=== PATIENT | male | born 1945 | race Caucasian/White ===

== ENCOUNTER 2020-06-18 17:03 | Emergency (ER) | payer MEDICARE, SELFPAY ==
--- NOTE | 2020-06-18 17:30 | XR_ITS ---
PROCEDURE: XR CHEST 2V CLINICAL HISTORY: COUGH COMPARISON: No exams were available for comparison FINDINGS: Normal heart size. There is slight increased density in the paratracheal region superiorly possibly due to overlying vasculature. Follow-up may confirm stability. The lungs are clear without infiltrates, suspicious nodules, or pleural effusions. No acute bony abnormalities. IMPRESSION: No acute finding. Increased paratracheal density possibly due to vascular ectasia. Paratracheal mass not excluded especially on the right. Follow-up may confirm stability Dictated b Erick Gerber MD 06/18/2020 18:36 Erick Gerber MD in [place] 06/18/2020 18:36
[2020-06-18 17:41] VITALS: BP 138/86; PULSE 83; RESP 20; TEMP 36.9; O2SAT 98; BMI 28.0
--- NOTE | 2020-06-18 18:15 | HMH.EDUTC ---
[facility] [place] Clinical Impression: Bronchitis Disposition: Home, Self-Care Condition on Discharge: Good Instructions: Acute Bronchitis, DI for Acute Bronchitis Additional Instructions: Drink plenty of fluids. Take tylenol or ibuprofen for pain or fever. Take the medications as directed. Follow up with your regular doctor. GO TO THE ER FOR ANY WORSENING SYMPTOMS Prescriptions: predniSONE [Deltasone 10mg tablet] 10 mg PO BID 4 Days #8 tab Transmission Status: Received by [facility] Benzonatate [Tessalon Perle 100mg Cap] 100 mg PO TIDP PRN #30 cap PRN Reason: Cough Transmission Status: Received by [facility] Azithromycin [Z-Ariel 250mg Tab*] 250 mg PO UD DOSE PK #6 tab Transmission Status: Received by [facility] Referrals: Andrew Martinez [Primary Care Provider] - Time of Disposition: 18:18 Medical Decision Making - Medical Records Medical records reviewed: No: I reviewed the patient's medical records. - Jim Inquiry Pt receiving controlled substance: No Vital Signs: 06/18/20 17:41 06/18/20 18:19 Temperature 98.4 F 98.4 F Temperature Source Oral Pulse Rate 83 Pulse Rate [Right Brachial] 83 Respiratory Rate 20 20 Blood Pressure 138/86 Blood Pressure [Right Arm] 138/86 Blood Pressure Mean [Right Arm] 103 Blood Pressure Source [Right Arm] Automatic Cuff Blood Pressure Position [Right Arm] Sitting 02 Sat by Pulse Oximetry 98 Oxygen Delivery Method Room Air [facility] [place] HPI - General Stated complaint: cough congestion Time Seen by Provider: 06/18/20 17:45 Mode of Arrival: Ambulatory Source of Information: Patient Limitations: No Limitations Description of Symptoms (Recalled from Triage Doc. by RN): PATIENT STATES THAT HE HAS HAD A CHRONIC COUGH X 1 YEAR. DURING THE PAST 2-3 DAYS, COUGH HAS BECOME DEEPER AND PRODUCTIVE WITH GREEN MUCOUS. DOES C/O SORE THROAT. DENIES ANY OTHER SYMPTOMS HEENT Symptoms (Recalled from RN notes): Yes Resp Symptoms (Recalled from RN notes): Yes Skin Symptoms (Recalled from RN notes): No MS Symptoms (Recalled from RN notes): No Functional Status (Recalled from RN notes): WNL - History of Present Illness Provider Complaint: He c/o a worsening productive cough with yellowish sputum. He denies any fever or chills. - Related Data Previous Rx's Medication Instructions Recorded Azithromycin [Z-Ariel 250mg Tab*] 250 mg PO UD DOSE PK #6 tab 06/18/20 Benzonatate [Tessalon Perle 100mg 100 mg PO TIDP PRN #30 cap 06/18/20 Cap] predniSONE [Deltasone 10mg tablet] 10 mg PO BID 4 Days #8 tab 06/18/20 Allergies Allergy/AdvReac Type Severity Reaction Status Date / Time No Known Allergies Allergy Verified 06/18/20 17:45 - Worker's Comp Is this a Worker's Comp case?: No [facility] History - Hepatitis A Screen Drug use history?: No High risk sexual behaviors?: No History of sexually transmitted infection?: No Currently employed?: No Childcare worker?: No Do you have indoor plumbing?: Yes Do you have electricity?: Yes Attestation statement:: This patient has been screened for Hepatitis A risk factors. I have reviewed the patient's past medical history: Yes - Social History Alcohol Intake: never Occupational Status: other ROS Obtained: Yes All systems reviewed & no additional complaints - Constitutional Constitutional: Denies chills, Denies fever(s) - Eyes Eyes: Denies eye discharge - ENT Ears, Nose, Mouth, and Throat: Denies dizziness, Denies otalgia, Reports post nasal drip, Denies sore throat - Cardiovascular Cardiovascular: Denies chest pain - Respiratory Respiratory: Yes chest congestion, Yes cough, No dyspnea, No coughing up blood, No stridor, No wheezing - Gastrointestinal Gastrointestingal: Denies: abdominal pain, diarrhea, nausea, reflux Physical Exam - General General appearance: alert, in no apparent distress - Head Head exam: atraumatic, normocephalic, normal inspection - Ey
[2020-06-18 18:19] VITALS: BP 138/86; PULSE 83; RESP 20; TEMP 36.9; O2SAT 98
== END 2020-06-18 18:22 | disposition home or self-care (01) ==
PROVIDERS: Emergency Provider Nurse Practitioner Family; PCP Family Medicine
DX: J20.9 Acute bronchitis, unspecified (principal)
CPT/HCPCS: 71046; 99201

== ENCOUNTER 2020-11-13 10:41 | Emergency (ER) | payer MEDICARE, SELFPAY ==
[2020-11-13 11:21] VITALS: BP 160/87; PULSE 87; RESP 16; TEMP 36.6; O2SAT 98; BMI 26.6
--- NOTE | 2020-11-13 11:30 | HMH.EDUTC ---
[facility] [place]ression: Toe infection Disposition: Home, Self-Care Condition on Discharge: Good Instructions: Trimethoprim/Sulfamethoxazole (Alternative Therapy), Ingrown Toenail, Cephalexin, Mupirocin Additional Instructions: Make sure to soak foot in warm water and epson salt 3-4 times daily Apply topical medication around the toenail as instructed Take oral medications as prescribe Call and make appointment with Podiatry for further treatment and evaluation Follow up with Family Doctor for further treatment and evaluation and for wound culture results and treatment if no improvement in the next 48-72 hours Straight to ER if any life threatening symptoms Return if needed Prescriptions: Sulfamethoxazole/Trimethoprim [Bactrim DS tablet] 1 each PO BID 10 Days #20 tab Transmission Status: Received by [facility] cephALEXin [Keflex 500mg Cap] 500 mg PO Q6H 7 Days #28 cap Transmission Status: Received by [facility] Mupirocin Calcium [Mupirocin 2% Cream 15gm] 1 applicatio TP TID #1 tube Transmission Status: Received by [facility] Referrals: Andrew Martinez [Primary Care Provider] - As needed Robina Feng APRN [Nurse Practitioner] - Dottie Dawson DPM [Staff Physician] - As needed (Call office on Monday for appointment) Time of Disposition: 11:43 Medical Decision Making - Jim Inquiry Pt receiving controlled substance: No Jim was queried for this patient: No Vital Signs: 11/13/20 11:21 11/13/20 11:42 Temperature 98 F 98 F Temperature Source Oral Oral Pulse Rate 87 Pulse Rate [Right] 87 Respiratory Rate 16 16 Blood Pressure 160/87 H Blood Pressure [Right Arm] 160/87 H Blood Pressure Mean [Right Arm] 111 Blood Pressure Source Automatic Cuff Blood Pressure Source [Right Arm] Automatic Cuff Blood Pressure Position Sitting Blood Pressure Position [Right Arm] Sitting 02 Sat by Pulse Oximetry 98 Oxygen Delivery Method Room Air Medical Decision Narrative: Culture obtained and sent to lab [facility] [place] - General Stated complaint: big toe on right foot pain Time Seen by Provider: 11/13/20 11:31 Mode of Arrival: Ambulatory Source of Information: Patient Limitations: No Limitations Description of Symptoms (Recalled from Triage Doc. by RN): Pt right big toe swollen, red, painful to touch HEENT Symptoms (Recalled from RN notes): No Resp Symptoms (Recalled from RN notes): No Skin Symptoms (Recalled from RN notes): Yes (big toe swollen and john paul) MS Symptoms (Recalled from RN notes): No Functional Status (Recalled from RN notes): na - History of Present Illness Provider Complaint: Patient states that he noticed a couple of days ago that he was having some redness, swelling and big toe on right foot was hurting States that he thought he may have a ingrown toe nail and it has continued to get worse and now the redness is starting to move down his toe and it is red, swollen and some drainage around the nail - Related Data Previous Rx's Medication Instructions Recorded Azithromycin [Z-Ariel 250mg Tab*] 250 mg PO UD DOSE PK #6 tab 06/18/20 Benzonatate [Tessalon Perle 100mg 100 mg PO TIDP PRN #30 cap 06/18/20 Cap] predniSONE [Deltasone 10mg tablet] 10 mg PO BID 4 Days #8 tab 06/18/20 Mupirocin Calcium [Mupirocin 2% 1 applicatio TP TID #1 tube 11/13/20 Cream 15gm] Sulfamethoxazole/Trimethoprim 1 each PO BID 10 Days #20 tab 11/13/20 [Bactrim DS tablet] cephALEXin [Keflex 500mg Cap] 500 mg PO Q6H 7 Days #28 cap 11/13/20 Allergies Allergy/AdvReac Type Severity Reaction Status Date / Time No Known Allergies Allergy Verified 06/18/20 17:45 - Worker's Comp Is this a Worker's Comp case?: No [facility] History - Hepatitis A Screen Drug use history?: No High risk sexual behaviors?: No History of sexually transmitted infection?: No Currently employed?: No Childcare worker?: No Do you have indoor plumbing?: Yes Do you have electricity?: Yes
[2020-11-13 11:42] VITALS: BP 160/87; PULSE 87; RESP 16; TEMP 36.6
== END 2020-11-13 11:43 | disposition home or self-care (01) ==
PROVIDERS: Emergency Provider Nurse Practitioner; PCP Family Medicine
DX: L03.031 Cellulitis of right toe (principal)
CPT/HCPCS: G0463; 87070; 87077; 87186; 87205; 99202

== ENCOUNTER → 2021-03-15 10:12 | Outpatient (CLI) | payer MEDICARE, SELFPAY | DX: R09.89 Other specified symptoms and signs involving the circulatory and respiratory systems (principal); B96.89 Other specified bacterial agents as the cause of diseases classified elsewhere | CPT/HCPCS: 87070; 87077; 87116; 87186; 87205; 87206 ==

== ENCOUNTER 2021-12-27 11:22 | Emergency (ER) | payer MEDICARE, SELFPAY ==
[2021-12-27 12:20] VITALS: BP 138/81; PULSE 73; RESP 18; TEMP 36.7; O2SAT 99; BMI 28.0
--- NOTE | 2021-12-27 13:10 | HMH.EDUTC ---
[facility] [place] Disposition Clinical Impression: Sinusitis Qualifiers: Sinusitis location: unspecified location Chronicity: unspecified Qualified Code(s): J32.9 - Chronic sinusitis, unspecified Disposition: Home, Self-Care Condition on Discharge: Good Instructions: Sinusitis, DI for Sinusitis Additional Instructions: ? Start antibiotic today. Be sure to complete entire prescription even if feeling better ? Monitor temp. Tylenol every 4 hours as needed and / or ibuprofen every 6 hours as needed ( As long as your primary care physician has told you that it ok to take both. For fever/aches/pains ER if no less than 101 despite Tylenol or Motrin ? Humidifier/vaporizer or hot steamy shower may help with sinus congestion and irritation ? Inhaler every 4-6 hours as needed like we discussed. If unsure how to use it, ask pharmacist to demonstrate how. Should help open airways and improve cough, wheezing, and shortness of breath as you was previously prescribed *Tessalon Perles will not cause drowsiness but use at bedtime to help stop cough so that you may get some rest. as you was previously prescribed *Start steroid today. Helps with inflammation therefore, cough and wheezing. Follow directions on the package. Reviewed side effects. Patient reports taking them before. Follow up IMMEDIATELY for new or worsening of symptoms OR no noticeable improvement over the next 48-72 hours. 911 immediately for any life threatening symptoms such as chest pain or difficulty breathing Prescriptions: Amoxicillin/Potassium Clav [Augmentin 875-125 Tablet] 1 tab PO Q12H 7 Days #14 tab Transmission Status: Pending to [facility] predniSONE [Deltasone 10mg tablet] 10 mg PO BID 4 Days #8 tab Transmission Status: Pending to [facility] Referrals: Provider,Referral, [Primary Care Provider] - As needed Time of Disposition: 13:19 Medical Decision Making - Jim Inquiry Pt receiving controlled substance: No Jim was queried for this patient: No Vital Signs: 12/27/21 12:20 12/27/21 13:18 Temperature 98.0 F 98.0 F Temperature Source Oral Pulse Rate 73 Pulse Rate [Left Brachial] 73 Respiratory Rate 18 18 Blood Pressure 138/81 Blood Pressure [Left Arm] 138/81 Blood Pressure Mean [Left Arm] 100 Blood Pressure Source [Left Arm] Automatic Cuff Blood Pressure Position [Left Arm] Sitting 02 Sat by Pulse Oximetry 99 Oxygen Delivery Method Room Air Medical Decision Narrative: Discussed with patient and due to patient being on blood thinners recommended transfer to the ED and patient declined State that he does this with sinus infection and he is not coughing up any blood and he would return or follow up immediately if symptoms worsen or do not improve [facility] [place] HPI - General Stated complaint: coughing up blood Time Seen by Provider: 12/27/21 13:10 Mode of Arrival: Ambulatory Source of Information: Patient Limitations: No Limitations Description of Symptoms (Recalled from Triage Doc. by RN): PATIENT C/O BLOOD-TINGED SINUS DRAINAGE X 2 WEEKS HEENT Symptoms (Recalled from RN notes): Yes Resp Symptoms (Recalled from RN notes): No Skin Symptoms (Recalled from RN notes): No MS Symptoms (Recalled from RN notes): No Functional Status (Recalled from RN notes): WNL - History of Present Illness Provider Complaint: Patient states that he has been having sinus issues for about 2 weeks States at times he feels like it is draining in the back of his throat an will snuff some out States that he noticed it has been having blood streaks in it at times States that his thinks he may have a bad sinus infection so he came in - Related Data Home Medications Medication Instructions Recorded Confirmed celecoxib 200 mg capsule 200 mg PO cap 11/26/20 11/26/20 doxazosin 4 mg tablet 4 mg PO tab 11/26/20 11/26/20 finasteride 5 mg tablet 5 mg PO tab 11/26/20 11/26/20 lisinopril 20 1 tab PO tab 11/26/20 11/26/20 mg-hydrochlorothiazide 12.5 mg
[2021-12-27 13:18] VITALS: BP 138/81; PULSE 73; RESP 18; TEMP 36.7; O2SAT 99
== END 2021-12-27 13:22 | disposition home or self-care (01) ==
PROVIDERS: Emergency Provider Nurse Practitioner
DX: J32.9 Chronic sinusitis, unspecified (principal); K21.9 Gastro-esophageal reflux disease without esophagitis; E78.5 Hyperlipidemia, unspecified
CPT/HCPCS: 99202; G0463

== ENCOUNTER 2022-08-17 11:43 | Emergency (ER) | payer MEDICARE, SELFPAY ==
[2022-08-17 11:52] VITALS: BP 141/84; PULSE 79; RESP 19; TEMP 36.6; O2SAT 98; BMI 27.5
--- NOTE | 2022-08-17 11:58 | EXP.UTC ---
Discharge Plan Disposition Patient Disposition: Home, Self-Care Condition: Good Prescriptions Prescriptions: New amoxicillin-pot clavulanate 875-125 mg Tablet 1 tab PO Q12H Qty: 20 0RF prednisone 10 mg tablet 10 mg PO BID 5 Days Qty: 10 0RF benzonatate 100 mg capsule 100 mg PO TID PRN (Reason: cough) Qty: 15 0RF No Action doxazosin 4 mg tablet 4 mg PO DAILY rabeprazole 20 mg tablet,delayed release (DR/EC) 20 mg PO DAILY Label Comments: TAKE 1 TABLET BY MOUTH ONCE DAILY finasteride 5 mg tablet 5 mg PO DAILY Label Comments: TAKE 1 TABLET BY MOUTH ONCE DAILY zolpidem 12.5 mg tablet,ext release multiphase 12.5 mg PO DAILY Label Comments: TAKE 1 TABLET BY MOUTH AT NIGHT NEEDED FOR SLEEP atorvastatin 20 mg tablet 20 mg PO DAILY Label Comments: TAKE 1 TABLET BY MOUTH ONCE DAILY metoprolol succinate 100 mg tablet extended release 24 hr 100 mg PO DAILY Label Comments: TAKE 1 TABLET BY MOUTH ONCE DAILY Eliquis 5 mg tablet 5 mg PO DAILY Label Comments: TAKE 1 TABLET BY MOUTH TWICE DAILY duloxetine 30 mg capsule,delayed release(DR/EC) 30 mg PO DAILY Referrals Follow up/Referrals: Provider,Referral, MD [Primary Care Provider] - See instructions Activity Restrictions/Add. Instructions Additional Instructions/Restrictions: *Monitor Temp, Over the counter Motrin or Tylenol as directed/as needed Tylenol every 4 hours and Motrin every 6 hours (as long as your family doctor has told you that you can take it) for fever or pain. and straight to ER if unable to lower temp less than 101.0 after medication given *Warm salt water gargles may help to soothe the throat *Throat Lozenges? *Warm fluids like tea with honey may help to soothe the throat? *Sleep elevated *Humidifier/Vaporizer *Flonase 2 sprays in each nostril daily but be aware that it may take 2-3 days before you notice improvement *Bromfed may cause drowsiness. Know how it effects you (your child) before driving, caring for small child, or sending your child to school. Not other antihistamines/allergy medications while taking bromfed Your throat swab was sent for culture. Those results are typically sent to your primary care. Be sure to follow up in 2-3 days with your family doctor/primary care physician if no improvement so they can review those result and treat if necessary. If you don?t have a primary care doctor, I recommend you get one but in the mean time, you will have to return to a walk in clinic Follow up IMMEDIATELY for new or worsening symptoms or no Noticeable improvement over the next 48-72 hours. 911 for difficulty breathing or swallowing Clinical Impressions Clinical Impression: Sinusitis, Bronchitis Instructions Patient Instructions: DI for Sinusitis, Acute Bronchitis Discharge ED Provider: Rafaela Rowell [facility] [place] HPI General Stated complaint: Cough, mucus Mode of Arrival: Family Vehicle Source of Information: Patient Limitations: No Limitations Time Seen by Provider: 08/17/22 11:58 Description of Symptoms (Recalled from Triage Doc. by RN): pt comes in with c/o coughing up mucus for 2 days. HEENT Symptoms (Recalled from RN notes): No Resp Symptoms (Recalled from RN notes): Yes Skin Symptoms (Recalled from RN notes): No MS Symptoms (Recalled from RN notes): No Functional Status (Recalled from RN notes): n/a History of Present Illness Provider Complaint: Patient states that he has been having sinus congestion and pressure along with cough for over a week but for the last couple of days he has been having drainage in the back of his throat and coughing up some mucous at times States that he wanted to come in and get something for it before it got too bad or turned into pneumonia Related Data Home Medications Medication Instructions Recorded Confirmed doxazosin 4 mg tablet 4 mg PO DAILY prostate 11/26/20 08/17/22 mariyaast
[2022-08-17 12:14] VITALS: BP 141/84; PULSE 79; RESP 19; TEMP 36.6
== END 2022-08-17 12:16 | disposition home or self-care (01) ==
PROVIDERS: Emergency Provider Nurse Practitioner
DX: R09.81 Nasal congestion (principal); R05.9 Cough, unspecified; Z79.01 Long term (current) use of anticoagulants; Z79.52 Long term (current) use of systemic steroids; Z79.899 Other long term (current) drug therapy; Z87.891 Personal history of nicotine dependence
CPT/HCPCS: 99213; G0463

== ENCOUNTER 2022-10-09 09:28 | Emergency (ER) | payer MEDICARE, SELFPAY ==
[2022-10-09] VITALS (8 sets, daily range): BP systolic 107–156; BP diastolic 62–99; PULSE 46–76; RESP 18–20; TEMP 36.7–36.9; O2SAT 92–96; BMI 27.9; BMI 27.3
--- NOTE | 2022-10-09 11:24 | XR_ITS ---
PROCEDURE INFORMATION: Exam: XR Chest Exam date and time: 10/09/2022 11:34 AM Age: 77 years old Clinical indication: Cough; Additional info: Chest congestion TECHNIQUE: Imaging protocol: Radiologic exam of the chest. Views: 2 views. COMPARISON: CR XR CHEST 2V 06/18/2020 5:35 PM FINDINGS: Lungs: Question subtle atelectasis within the lingula versus the middle lobe best visualized on the lateral view. Lungs are otherwise well aerated. Pleural spaces: Unremarkable. No pleural effusion. No pneumothorax. Heart/Mediastinum: Unremarkable. No cardiomegaly. Bones/joints: Unremarkable. IMPRESSION: Question subtle atelectasis within the lingula versus the middle lobe best visualized on the lateral view. Lungs are otherwise well aerated.
--- NOTE | 2022-10-09 11:36 | EXP.UTC ---
Discharge Plan Disposition Patient Disposition: Home, Self-Care Condition: Good Prescriptions Prescriptions: New hydrocodone-homatropine [Hycodan (with homatropine)] 5-1.5 mg/5 mL syrup 5 ml PO Q6H PRN (Reason: cough) Qty: 100 0RF No Action doxazosin 4 mg tablet 4 mg PO DAILY rabeprazole 20 mg tablet,delayed release (DR/EC) 20 mg PO DAILY Label Comments: TAKE 1 TABLET BY MOUTH ONCE DAILY finasteride 5 mg tablet 5 mg PO DAILY Label Comments: TAKE 1 TABLET BY MOUTH ONCE DAILY zolpidem 12.5 mg tablet,ext release multiphase 12.5 mg PO DAILY Label Comments: TAKE 1 TABLET BY MOUTH AT NIGHT NEEDED FOR SLEEP atorvastatin 20 mg tablet 20 mg PO DAILY Label Comments: TAKE 1 TABLET BY MOUTH ONCE DAILY metoprolol succinate 100 mg tablet extended release 24 hr 100 mg PO DAILY Label Comments: TAKE 1 TABLET BY MOUTH ONCE DAILY Eliquis 5 mg tablet 5 mg PO DAILY Label Comments: TAKE 1 TABLET BY MOUTH TWICE DAILY duloxetine 30 mg capsule,delayed release(DR/EC) 30 mg PO DAILY Referrals Follow up/Referrals: Andrew Martinez [Primary Care Provider] - See instructions Romario Galindo MD [Staff Physician] - See instructions Activity Restrictions/Add. Instructions Additional Instructions/Restrictions: During the daytime take [id number] Robitussin (dextromethorphan/ guaifenesin) as directed for cough. Follow up tomorrow morning with Dr. Romario Galindo in his office at 9 AM. Avoid exertion Clinical Impressions Clinical Impression: Bronchitis, Post-tussive syncope, Acute pericardial effusion Instructions Patient Instructions: DI for Acute Bronchitis Discharge ED Provider: Roger Rojas [facility] General Chief complaint: Upper Respiratory Infection Stated complaint: SOA, Cough Mode of Arrival: Ambulatory Source of Information: Patient Limitations: No Limitations Time Seen by Provider: 10/09/22 11:36 Description of Symptoms (Recalled from Triage Doc. by RN): PATIENT C/O COUGH AND CONGESTION X 2 WEEKS. PATIENT STATES HE GETS DIZZY WHEN HE COUGHS. DIAGNOSED WITH FLU ON MONDAY HEENT Symptoms (Recalled from RN notes): No Resp Symptoms (Recalled from RN notes): Yes Skin Symptoms (Recalled from RN notes): No MS Symptoms (Recalled from RN notes): No Functional Status (Recalled from RN notes): WNL History of Present Illness Provider Complaint: Patient state that he has not felt well for about 2 weeks State that he has been falling and off balance and blacking out at times when he coughs, States that took him to [facility] and he was dx with flu on Monday States that they did a chest xray and thought he may have a little fluid around his heart States that since then he has got more short of breath and when he coughs he about passes out states that he is not acting like his normal self and very unsteady on his feet and gets winded easily so today she brought him back in Related Data Home Medications Medication Instructions Recorded Confirmed doxazosin 4 mg tablet 4 mg PO DAILY prostate 11/26/20 10/10/22 finasteride 5 mg tablet 5 mg PO DAILY prostate 11/26/20 10/10/22 rabeprazole 20 mg tablet,delayed 20 mg PO DAILY GERD 11/26/20 10/10/22 release zolpidem 12.5 mg tablet,extended 12.5 mg PO DAILY Insomnia 11/26/20 10/10/22 release,multiphase apixaban 5 mg tablet (Eliquis) 5 mg PO DAILY Blood thinner 08/17/22 10/10/22 atorvastatin 20 mg tablet 20 mg PO DAILY Cholesterol 08/17/22 10/10/22 duloxetine 30 mg capsule,delayed 30 mg PO DAILY Anxiety 08/17/22 10/10/22 release metoprolol succinate 100 mg 100 mg PO DAILY High blood pressure 08/17/22 10/10/22 tablet,extended release 24 hr Previous Rx's Medication Instructions Recorded hydrocodone-homatropine 5 mg-1.5 5 ml PO Q6H PRN cough #100 mL 10/09/22 mg/5 mL oral syrup (Hycodan (with homatropine)) Allergies Allergy/AdvReac Type Severity Reaction Status Date / Ti
--- NOTE | 2022-10-09 11:52 | PC.NURSE ---
Pt returned from [facility].
--- NOTE | 2022-10-09 11:52 | PC.NURSE ---
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
--- NOTE | 2022-10-09 12:25 | HMH.EDGENADL ---
Discharge Plan Disposition Patient Disposition: Home, Self-Care Condition: Good Prescriptions Prescriptions: New hydrocodone-homatropine [Hycodan (with homatropine)] 5-1.5 mg/5 mL syrup 5 ml PO Q6H PRN (Reason: cough) Qty: 100 0RF No Action doxazosin 4 mg tablet 4 mg PO DAILY rabeprazole 20 mg tablet,delayed release (DR/EC) 20 mg PO DAILY Label Comments: TAKE 1 TABLET BY MOUTH ONCE DAILY finasteride 5 mg tablet 5 mg PO DAILY Label Comments: TAKE 1 TABLET BY MOUTH ONCE DAILY zolpidem 12.5 mg tablet,ext release multiphase 12.5 mg PO DAILY Label Comments: TAKE 1 TABLET BY MOUTH AT NIGHT NEEDED FOR SLEEP atorvastatin 20 mg tablet 20 mg PO DAILY Label Comments: TAKE 1 TABLET BY MOUTH ONCE DAILY metoprolol succinate 100 mg tablet extended release 24 hr 100 mg PO DAILY Label Comments: TAKE 1 TABLET BY MOUTH ONCE DAILY Eliquis 5 mg tablet 5 mg PO DAILY Label Comments: TAKE 1 TABLET BY MOUTH TWICE DAILY duloxetine 30 mg capsule,delayed release(DR/EC) 30 mg PO DAILY amoxicillin-pot clavulanate 875-125 mg Tablet 1 tab PO Q12H Qty: 20 0RF prednisone 10 mg tablet 10 mg PO BID 5 Days Qty: 10 0RF benzonatate 100 mg capsule 100 mg PO TID PRN (Reason: cough) Qty: 15 0RF Referrals Follow up/Referrals: Andrew Martinez [Primary Care Provider] - See instructions Romario Galindo MD [Staff Physician] - See instructions Activity Restrictions/Add. Instructions Additional Instructions/Restrictions: During the daytime take [id number] Robitussin (dextromethorphan/ guaifenesin) as directed for cough. Follow up tomorrow morning with Dr. Romario Galindo in his office at 9 AM. Avoid exertion Clinical Impressions Clinical Impression: Bronchitis, Post-tussive syncope, Acute pericardial effusion Instructions Patient Instructions: DI for Acute Bronchitis Discharge ED Provider: Roger Rojas General Adult HPI General Chief complaint: Upper Respiratory Infection Stated complaint: SOA, Cough Time Seen by Provider: 10/09/22 11:36 Mode of Arrival: Ambulatory Source of Information: Patient Limitations: No Limitations Description of Symptoms (Recalled from ER Triage Doc. by RN): PATIENT C/O COUGH AND CONGESTION X 2 WEEKS. PATIENT STATES HE GETS DIZZY WHEN HE COUGHS. DIAGNOSED WITH FLU ON MONDAY History of Present Illness HPI narrative: Patient presents with a 2-week history of cough and congestion. He has had to episodes of passing out following prolonged episodes of coughing. He was seen at another facility and prescribed antitussives but the cough persists. He was diagnosed with flu on Monday. He denies chest pain but has had some dyspnea. He is on Eliquis for A. fib. Symptoms are described as moderate to severe and worse with cough Related Data Home Medications Medication Instructions Recorded Confirmed doxazosin 4 mg tablet 4 mg PO DAILY prostate 11/26/20 08/17/22 finasteride 5 mg tablet 5 mg PO DAILY prostate 11/26/20 08/17/22 rabeprazole 20 mg tablet,delayed 20 mg PO DAILY GERD 11/26/20 08/17/22 release zolpidem 12.5 mg tablet,extended 12.5 mg PO DAILY Insomnia 11/26/20 08/17/22 release,multiphase apixaban 5 mg tablet (Eliquis) 5 mg PO DAILY Blood thinner 08/17/22 08/17/22 atorvastatin 20 mg tablet 20 mg PO DAILY Cholesterol 08/17/22 08/17/22 duloxetine 30 mg capsule,delayed 30 mg PO DAILY Anxiety 08/17/22 08/17/22 release metoprolol succinate 100 mg 100 mg PO DAILY High blood pressure 08/17/22 08/17/22 tablet,extended release 24 hr Previous Rx's Medication Instructions Recorded amoxicillin 875 mg-potassium 1 tab PO Q12H #20 tabs 08/17/22 clavulanate 125 mg tablet benzonatate 100 mg capsule 100 mg PO TID PRN cough #15 caps 08/17/22 prednisone 10 mg tablet 10 mg PO BID 5 days #10 tabs 08/17/22 hydrocodone-homatropine 5 mg-1.5 5 ml PO Q6H PRN cough #100 mL 10/09/22 mg/5 mL oral syrup (Hycoda
--- NOTE | 2022-10-09 12:50 | ECG_ITS ---
APPROVED REPORT Exam: Resting ECG HR:70 bpm ECG Measurements Heart Rate 70 AXES QRSd 128 QRS 72 QT 441 T 39 QTc 462 Conclusion ATRIAL FIBRILLATION RIGHT BUNDLE BRANCH BLOCK [120+ ms QRS DURATION, UPRIGHT V1, 40+ ms S IN I/aVL/V4/V5/V6] ABNORMAL ECG UNCONFIRMED REPORT Electronically signed by : Feroz Britton MD 10/10/2022 21:11:54
[2022-10-09 12:52] LABS: Basophils % 0.6 % (0.1-2.0); Eosinophils # 0.1 K/mm3 (0.0-0.4); Eosinophils % 1.1 % (0.1-12.0); Hematocrit 41.9 % (42.0-52.0); Hemoglobin 13.8 g/dL (14.1-18.0); Lymphocytes # 1.6 K/mm3 (0.7-4.5); Lymphocytes % 25.6 % (10-50); Mean Corpuscular HGB Conc 32.9 g/dL (31.8-35.4); Mean Corpuscular Hemoglobin 31.4 pg (27.0-31.2); Mean Corpuscular Volume 95.4 fl (80-94); Mean Platelet Volume 8.1 fl (7.4-10.4); Monocytes # 0.4 K/mm3 (0.1-1.0); Monocytes % 6.7 % (1.7-9.3); Neutrophils # 4.2 K/mm3 (1.8-7.8); Neutrophils % 65.9 % (37.0-80.0); Platelet Count 257 K/mm3 (142-424); Red Blood Count 4.39 M/mm3 (4.60-6.20); Red Cell Distribution Width 12.5 % (11.5-17.5); White Blood Count 6.3 K/mm3 (4.8-10.8)
[2022-10-09 13:13] LABS: Alanine Aminotransferase 26 U/L (12-78); Albumin Level 3.8 g/dl (3.5-5.0); Albumin/Globulin Ratio 1.2 (1.1-1.8); Alkaline Phosphatase 117 U/L (38-126); Anion Gap 16.6 mEq/L (5-15); Aspartate Amino Transferase 51 U/L (17-59); Bilirubin,Total 0.6 mg/dl (0.2-1.3); Blood Urea Nitrogen 15 mg/dl (9-20); Calcium 10.1 mg/dl (8.4-10.2); Carbon Dioxide 30 mmol/L (22.0-30.0); Chloride 93 mmol/L (98-107); Creatinine Clearance Estimated 76 mL/min (50-200); Estimated Glomerular Filt Rate 73 ml/min (>60); GFR (African American) 88 ML/MIN (>60); Globulin 3.3 g/dL (1.3-3.2); Glucose 103 mg/dl (74-100); Potassium 4.6 mmoL/L (3.5-5.1); Sodium 135 mmol/L (136-145); Total Protein,Serum 7.1 g/dl (6.3-8.2)
[2022-10-09 13:18] LABS: D-Dimer 0.83 ug/mL (0.0-0.5)
[2022-10-09 13:32] LABS: Troponin I < 0.01 ng/ml (0.00-0.034)
--- NOTE | 2022-10-09 13:33 | CT_ITS ---
PROCEDURE INFORMATION: Exam: CTA Chest With Contrast Exam date and time: 10/09/2022 1:47 PM Age: 77 years old Clinical indication: Shortness of breath; Additional info: SOA TECHNIQUE: Imaging protocol: Computed tomographic angiography of the chest with contrast. 3D rendering (Not supervised by radiologist): MIP and/or 3D reconstructed images were created by the technologist. Radiation optimization: All CT scans at this facility use at least one of these dose optimization techniques: automated exposure control; mA and/or kV adjustment per patient size (includes targeted exams where dose is matched to clinical indication); or iterative reconstruction. Contrast material: ISOVUE; Contrast volume: 70 ml; Contrast route: INTRAVENOUS (IV); COMPARISON: CR XR CHEST 2V 10/09/2022 11:34 AM FINDINGS: Pulmonary arteries: Normal. No pulmonary emboli. Aorta: Unremarkable. No aortic aneurysm. No aortic dissection. Celiac trunk and mesenteric arteries: Flow within the visualized portions of the celiac artery and superior mesenteric artery. Lungs: Mild atelectasis within the lung bases and middle lobe. Lungs are otherwise well aerated. Pleural spaces: Unremarkable. No pneumothorax. No pleural effusion. Heart: Borderline cardiomegaly. Small amount of fluid within the superior pericardial recess. Pericardial effusion maximal diameter of approximately 7 mm. Lymph nodes: Unremarkable. No enlarged lymph nodes. Diaphragm: Small hiatal hernia. Liver: 1 cm cyst lateral segment left lobe of the liver Kidneys and ureters: 2 cm cyst right kidney Bones/joints: The thoracic inlet is unremarkable. Soft tissues: Unremarkable. Other findings: No dissection. No visualized embolism as characterized to the most proximal segmental level. Consider alternative form of imaging if indicated. IMPRESSION: 1. No dissection. No visualized embolism as characterized to the most proximal segmental level. Consider alternative form of imaging if indicated given the limitations of this exam 2. Small hiatal hernia. 3. Pericardial effusion maximal diameter of approximately 7 mm. 4. Mild atelectasis within the lung bases and middle lobe. Lungs are otherwise well aerated. COMMENTS: Consistent with the [employer]'s Incidental Findings Committee white paper (J Am Felisha Radiol 2018): Any incidental renal lesion less than 1 cm or classified as too small to characterize, or any incidental cystic renal lesion characterized as simple-appearing, is likely benign. No follow-up imaging is recommended for these lesions per consensus recommendations based on imaging criteria.
--- NOTE | 2022-10-09 14:51 | PC.NURSE ---
PAGED CEMENT GUN OPERATOR EXTRUSION DIE COORDINATOR FOR DR BARTLETT
--- NOTE | 2022-10-09 14:52 | PC.NURSE ---
DR BARTLETT SPEAKING WITH SERVICE DELIVERY MANAGEMENT CONSULTANT AT THIS TIME.
== END 2022-10-09 15:36 | disposition home or self-care (01) ==
LOC: UTC 09:30 → ER 11:43
PROVIDERS: Emergency Provider Emergency Medicine; PCP Family Medicine
DX: R06.9 Unspecified abnormalities of breathing (principal); R55 Syncope and collapse; R06.02 Shortness of breath; R05.9 Cough, unspecified; I45.10 Unspecified right bundle-branch block; I48.20 Chronic atrial fibrillation, unspecified; Z79.01 Long term (current) use of anticoagulants; Z79.1 Long term (current) use of non-steroidal anti-inflammatories (NSAID); Z79.899 Other long term (current) drug therapy; Z87.891 Personal history of nicotine dependence
CPT/HCPCS: 71046; 71275; 80053; 84484; 85025; 85378; 93005; Q9967

== ENCOUNTER → 2022-10-10 10:12 | Outpatient (CLI) | payer MEDICARE, SELFPAY ==
--- NOTE | 2022-10-10 10:12 | CA_ITS ---
APPROVED REPORT EXAM: Comprehensive 2D, Doppler, and color-flow Echocardiogram Chiropractic Physician: Marichuy Nguyen CRT Ht: 5 ft 9 in Wt: 185lbs BSA: 2.00 BP: 126/81 mmHg Indications: Shortness of Breath, Atrial Fibrillation, Hyperlipidemia, Hypertension/HDD, ? pericarditis, pericardial effusion on CT scan 2D Dimensions Aortic Root 1.99 cm LA Volume 40.60 mL LA Volume Index 19.80 mL/m2 (M/F) 16-34 M-Mode Dimensions RVDd 3.19 cm (0.9-2.6) LA Diam 4.52 cm (1.9-4.0) LVDd 4.83 cm (3.5-5.7) Ao Diam 3.49 cm (2.0-3.7) LVDs 3.23 cm (3.5-5.7) IVSd 0.95 cm (0.6-1.1) PWd 1.25 cm (0.6-1.1) EF (Teich) 61.60% FS 33.10% EDV (Teich) 109.10 mL TAPSE 2.27 (<1.7) ESV (Teich) 41.90 mL LV Diastology E Decel Time 137.00 (160-240 msec) E/A Ratio 4.34 MED E' 8.50 (< 7 cm/sec) MED A' 1.80 cm/s E'/MED E' Ratio 11.68 (>14) LAT E' 13.30 (<10 cm/sec) LAT A' 3.30 cm/s E/LAT E' Ratio 7.47 (>14) Aortic Valve AO Peak GR. 8.20 mmHg Mitral Valve MV A Velocity 23.00 (40-130 cm/s) E/A Ratio 4.34 MV Decel. Time 137.00 (160-240 ms) Pulmonary Valve PV Peak Velocity 89.00 (50-150 cm/s) Tricuspid Valve TR P. Velocity 285.00 cm/s RAP Estimate 10.00 mmHg RVSP 42.50 mmHg Left Ventricle Left atrium is mildly enlarged, left ventricle is normal size, mild concentric left ventricular hypertrophy, estimated ejection fraction 55% with no regional wall motion abnormality, diastolic parameters are inconclusive. Right Ventricle Right atrium and right ventricle are mildly enlarged with normal contractility. Aortic Valve Aortic valve is minimally thickened and fibrosed there is no aortic stenosis or aortic insufficiency. Mitral Valve Mitral valve is grossly normal, there is trace mitral regurgitation. Tricuspid Valve Tricuspid valve grossly normal, there is trace tricuspid regurgitation, tricuspid regurgitation jet velocity is inadequate for calculation of the right ventricular systolic pressure. Pulmonic Valve Pulmonic valve is poorly visualized. Great Vessels Aortic root is normal size. Inferior vena cava is normal size with normal inspiratory collapse. Pericardium No significant No significant pericardial effusion noted. There is an anterior echo-free space seen. Conclusion 1. Mild biatrial enlargement, normal left ventricular size, mild concentric left ventricular hypertrophy, estimated ejection fraction 55% with no regional wall motion abnormality, diastolic parameters are inconclusive. 2. Mildly enlarged right ventricle with normal contractility. 3. Trace mitral and tricuspid regurgitation. 4. No significant pericardial effusion noted, there is anterior echo-free space seen. 5. Inferior vena cava is normal size with normal inspiratory collapse. Electronically signed by : Benjy Goldman MD 10/11/2022 06:35:17
== END ==
PROVIDERS: PCP Family Medicine; Visit Provider Nurse Practitioner Family
DX: I30.9 Acute pericarditis, unspecified (principal); I48.20 Chronic atrial fibrillation, unspecified; R06.00 Dyspnea, unspecified; R55 Syncope and collapse
CPT/HCPCS: 93306

== ENCOUNTER 2025-04-14 17:49 | Emergency (ER) | payer MEDICARE, SELFPAY ==
[2025-04-14 18:00] VITALS: BP 155/86; PULSE 82; RESP 16; TEMP 36.8; O2SAT 98; BMI 27.3
--- NOTE | 2025-04-14 18:12 | XR_ITS ---
PROCEDURE INFORMATION: Exam: XR Right Wrist Exam date and time: 04/14/2025 6:26 PM Age: 80 years old Clinical indication: Injury or trauma; Other: Wrist injury; Blunt trauma (contusions or hematomas); Right TECHNIQUE: Imaging protocol: Radiologic exam of the right wrist. Views: 3 or more views. COMPARISON: No relevant prior studies available. FINDINGS: Bones/joints: No evidence of acute fracture or malalignment. [place] at the tip of the ulnar styloid process compatible with accessory os triangulare vs chronic sequelae of prior trauma. Calcifications in the radiocarpal joint space and triangular fibrocartilage matrix consistent with crystal deposition disease (CPPD). Soft tissues: Unremarkable. IMPRESSION: 1. No evidence of acute osseous abnormality in the right wrist. 2. Calcifications in the radiocarpal joint space and triangular fibrocartilage matrix consistent with crystal deposition disease (CPPD).
--- NOTE | 2025-04-14 18:15 | PC.NURSE ---
Pt assessed in triage, XR ordered, pt placed back in lobby, ice pack applied
--- NOTE | 2025-04-14 20:08 | HMH.EDGENADL ---
Discharge Plan Disposition Patient Disposition: Home, Self-Care Condition: Good Prescriptions Prescriptions: No Action doxazosin 4 mg tablet 4 mg PO DAILY rabeprazole 20 mg tablet,delayed release (DR/EC) 20 mg PO DAILY Patient Comments: TAKE 1 TABLET BY MOUTH ONCE DAILY finasteride 5 mg tablet 5 mg PO DAILY Patient Comments: TAKE 1 TABLET BY MOUTH ONCE DAILY zolpidem 12.5 mg tablet,ext release multiphase 12.5 mg PO DAILY Patient Comments: TAKE 1 TABLET BY MOUTH AT NIGHT NEEDED FOR SLEEP atorvastatin 20 mg tablet 20 mg PO DAILY Patient Comments: TAKE 1 TABLET BY MOUTH ONCE DAILY metoprolol succinate 100 mg tablet extended release 24 hr 100 mg PO DAILY Patient Comments: TAKE 1 TABLET BY MOUTH ONCE DAILY Eliquis 5 mg tablet 5 mg PO DAILY Patient Comments: TAKE 1 TABLET BY MOUTH TWICE DAILY duloxetine 30 mg capsule,delayed release(DR/EC) 30 mg PO DAILY hydrocodone-homatropine [Hycodan (with homatropine)] 5-1.5 mg/5 mL syrup 5 ml PO Q6H PRN (Reason: cough) Qty: 100 0RF Referrals Follow up/Referrals: Benjy Goldman MD [Primary Care Provider, Cardiology] - See instructions Activity Restrictions/Add. Instructions Additional Instructions/Restrictions: As we discussed I recommend taking Tylenol alternating with Motrin and you may use ice to reduce pain and swelling. If you have any numbness tingling loss of function of your hand persistent new or worsening signs or symptoms follow-up with your PCP Dr. Mccarthy or return to the ER as needed. Clinical Impressions Clinical Impression: Injury of right wrist Qualifiers: Encounter type: initial encounter Qualified Code(s): S69.91XA - Unspecified injury of right wrist, hand and finger(s), initial encounter Print Language Print Language: [place] Discharge ED Provider: Jim Park General Adult HPI <JAMILA Rubalcava - Last Filed: 04/14/25 21:21> General Chief complaint: Extremity Injury, Upper Stated complaint: possible broken rt wrist Time Seen by Provider: 04/14/25 20:08 Mode of Arrival: Ambulatory Source of Information: Patient Description of Symptoms (Recalled from ER Triage Doc. by RN): Pt was tilling garden today around noon when it hit a rock and jerked pt's right wrist. Pt states he is having right forearm pain and wrist pain. 7/10 pain. History of Present Illness HPI narrative: Patient presents for a right wrist injury.. Patient was utilizing a Rototiller to prepare his garden and the Rototiller hit a rock and jerked his right wrist. He is having pain at the wrist and forearm but denies any numbness tingling loss of motor or sensory. He is concerned that he may have broken something. Related Data Home Medications ?Medication ?Instructions ?Recorded ?Confirmed doxazosin 4 mg tablet 4 mg PO DAILY prostate 11/26/20 10/10/22 finasteride 5 mg tablet 5 mg PO DAILY prostate 11/26/20 10/10/22 rabeprazole 20 mg tablet,delayed 20 mg PO DAILY GERD 11/26/20 10/10/22 release zolpidem 12.5 mg tablet,extended 12.5 mg PO DAILY Insomnia 11/26/20 10/10/22 release,multiphase apixaban 5 mg tablet (Eliquis) 5 mg PO DAILY Blood thinner 08/17/22 10/10/22 atorvastatin 20 mg tablet 20 mg PO DAILY Cholesterol 08/17/22 10/10/22 duloxetine 30 mg capsule,delayed 30 mg PO DAILY Anxiety 08/17/22 10/10/22 release metoprolol succinate 100 mg 100 mg PO DAILY High blood pressure 08/17/22 10/10/22 tablet,extended release 24 hr Previous Rx's ?Medication ?Instructions ?Recorded hydrocodone-homatropine 5 mg-1.5 5 ml PO Q6H PRN cough #100 mL 10/09/22 mg/5 mL oral solution (Hycodan (with homatropine)) Allergies Allergy/AdvReac Type Severity Reaction Status Date / Time No Known Allergies Allergy Verified 10/10/22 09:23 [facility] <JAMILA Rubalcava - Last Filed: 04/14/25 21:21> [facility] Disclaimer: The information contained in this section may have been updated after the patient was seen, as this information can be updated by other users. Medical History (Updated 04/14/25 @ 20:26 by JAMILA Rubalcava) Cough Chronic a-fib Syncope Atrial fibrillation Hyperlipidemia Hypertension Social History (Reviewed 10/10/22 @ 09:25 by Yudith Sales Smoking Status: Never smoker alcohol intake: never substance use type: denies use current occupational status: other Travel in the last 8 weeks?: None Have you lived/traveled outside US in past 30 days?: No Contact w/someone who lives/traveled outside US past 30 days?: No Exposure to someone with infectious disease in past 14 days?: No Do you have a fever (greater than 100.4 F or 38 C)?: No Have you tested positive for COVID-19?: No Exposed to someone with COVID-19 in past 14 days?: No Do you have a sore throat?: No Do you have a cough?: No Do you have any weakness?: No Do you have any diarrhea?: No Are you experiencing any unusual bleeding?: No Do you have any muscle aches/pain?: No Do you have any abdominal pain?: No Are you experiencing loss of taste or smell?: No Other Medical History Have you received the Flu Vaccine for this season: Yes Have you received the Pneumonia Vaccine: Yes <JAMILA Rubalcava - Last Filed: 04/14/25 21:21> ROS Obtained: Yes Systems reviewed as appropriate & no additional complaints except as documented Physical Exam <JAMILA Rubalcava - Last Filed: 04/14/25 21:21> General General appearance: alert and in no apparent distress Respiratory Respiratory exam: Present normal lung sounds bilaterally Cardiovascular Cardiovascular exam: Present regular rate Neurological Exam Neurological exam: Present alert Medical Decision Making <JAMILA Rubalcava - Last Filed: 04/14/25 21:21> Medical Records Screening: Per USPSTF and CDC recommendations, given the prevalence of disease in our region, it is our hospital?s policy to screen for HIV and viral Hepatitis for all patients aged 18 and over and those with ongoing risk factors. Jim Inquiry Pt receiving controlled substance: No Vital Signs: 04/14/25 18:00 04/14/25 20:24 04/14/25 20:29 Temperature 98.2 F 98.3 F 97.9 F Temperature Source Oral Oral Oral Pulse Rate 79 78 Pulse Rate [Right] 82 Respiratory Rate 16 18 16 Blood Pressure 154/100 H 148/96 H Blood Pressure [Left Arm] 155/86 H Blood Pressure Mean [Left Arm] 109 Blood Pressure Source Automatic Cuff Blood Pressure Source [Left Arm] Automatic Cuff Blood Pressure Position Sitting Blood Pressure Position [Left Arm] Sitting 02 Sat by Pulse Oximetry 98 98 Oxygen Delivery Method Room Air Room Air Room Air Orders (Tests/Meds): ORDERS Category Date Time Status Wrist XR right minimum 3 views [XR wrist RT min 3V] Exams 04/14/25 18:12 Completed Stat Medical Decision Narrative: In summary patient is a 80-year-old male who presents to the emergency department for evaluation of right wrist injury. Patient is hemodynamically stable upon arrival, afebrile. Patient has tenderness on the ulnar side of his right wrist however there is no palpable bony deformity. He has palpable and brisk radial and ulnar pulses. He has no palpable bony deformity. He has full range of motion.. Differential diagnosis includes sprain versus fracture. Initial workup will be conducted with plain film x-rays. Initial interventions with Tylenol and ibuprofen were offered however patient has declined. Initial workup reviewed by me and my informal interpretation of his imaging shows no acute bony fracture prior to radiology read. Please see final read for formal interpretation. Upon repeat evaluation I had a shared decision-making discussion with the patient regarding his presentation EDWARDS and findings and I have offered the patient a wrist splint and referral to orthopedics. Via patient directed decision making discharge he is already established with Dr. Mccarthy and does not feel like he needs to see him however should he have continued new or worsening signs or symptoms he will be evaluated by Dr. Mccarthy or his PCP. He is also declined a wrist splint. Given this patient is appropriate for discharge with instruction to continue taking Tylenol alternating with Motrin ice alternating with heat as needed and close follow-up with orthopedics and PCP as needed. <Jim Park MD - Last Filed: 04/14/25 23:37> Vital Signs: 04/14/25 18:00 04/14/25 20:24 04/14/25 20:29 Temperature 98.2 F 98.3 F 97.9 F Temperature Source Oral Oral Oral Pulse Rate 79 78 Pulse Rate [Right] 82 Respiratory Rate 16 18 16 Blood Pressure 154/100 H 148/96 H Blood Pressure [Left Arm] 155/86 H Blood Pressure Mean [Left Arm] 109 Blood Pressure Source Automatic Cuff Blood Pressure Source [Left Arm] Automatic Cuff Blood Pressure Position Sitting Blood Pressure Position [Left Arm] Sitting 02 Sat by Pulse Oximetry 98 98 Oxygen Delivery Method Room Air Room Air Room Air Orders (Tests/Meds): ORDERS Category Date Time Status Wrist XR right minimum 3 views [XR wrist RT min 3V] Exams 04/14/25 18:12 Completed Stat Medical Decision Narrative: In summary patient is a 80-year-old male who presents to the emergency department for evaluation of right wrist injury. Patient is hemodynamically stable upon arrival, afebrile. Patient has tenderness on the ulnar side of his right wrist however there is no palpable bony deformity. He has palpable and brisk radial and ulnar pulses. He has no palpable bony deformity. He has full range of motion.. Differential diagnosis includes sprain versus fracture. Initial workup will be conducted with plain film x-rays. Initial interventions with Tylenol and ibuprofen were offered however patient has declined. Initial workup reviewed by me and my informal interpretation of his imaging shows no acute bony fracture prior to radiology read. Please see final read for formal interpretation. Upon repeat evaluation I had a shared decision-making discussion with the patient regarding his presentation EDWARDS and findings and I have offered the patient a wrist splint and referral to orthopedics. Via patient directed decision making discharge he is already established with Dr. Mccarthy and does not feel like he needs to see him however should he have continued new or worsening signs or symptoms he will be evaluated by Dr. Mccarthy or his PCP. He is also declined a wrist splint. Given this patient is appropriate for discharge with instruction to continue taking Tylenol alternating with Motrin ice alternating with heat as needed and close follow-up with orthopedics and PCP as needed. I was consulted by the [facility], and we discussed the complexity of the problems being addressed.I approved the treatment and management plan for this patient?s care in the Emergency Department, thus performing a substantive portion of the medical decision making.Signed, Jim Park MD MBA Critical Care <JAMILA Rubalcava - Last Filed: 04/14/25 21:21> Critical Care Time Critical Care Time: No
[2025-04-14 20:24] VITALS: BP 154/100; PULSE 79; RESP 18; TEMP 36.8; O2SAT 98
[2025-04-14 20:29] VITALS: BP 148/96; PULSE 78; RESP 16; TEMP 36.6; O2SAT 98
== END 2025-04-14 20:30 | disposition home or self-care (01) ==
PROVIDERS: Emergency Provider Emergency Medicine; PCP Internal Medicine Cardiovascular Disease
DX: S69.91XA Unspecified injury of right wrist, hand and finger(s), initial encounter (principal); X50.1XXA Overexertion from prolonged static or awkward postures, initial encounter
CPT/HCPCS: 73110; 99283